=== PATIENT | male | born 1980 | race Caucasian/White ===

== ENCOUNTER 2021-06-30 19:44 | Emergency (ER) | payer OTHER ==
[~2021-06-30 19:44] MED LIST: CLEOCIN 150MG150 MG PO
[2021-06-30] MEDS ORDERED: CEPHALEXIN500 MG PO (20:10)
[2021-06-30] MEDS ORDERED: BACTRIM DS TAB1 EACH PO (20:10)
== END 2021-06-30 20:20 | disposition home or self-care (01) ==
LOC: ER1 19:44
DX: S81.802A Unspecified open wound, left lower leg, initial encounter (principal); S81.801A Unspecified open wound, right lower leg, initial encounter; F17.200 Nicotine dependence, unspecified, uncomplicated; Z88.0 Allergy status to penicillin; Z88.6 Allergy status to analgesic agent; W22.8XXA Striking against or struck by other objects, initial encounter
CPT/HCPCS: 99282